=== PATIENT | female | born 1955 | race Caucasian/White ===

== ENCOUNTER → 2018-06-11 | Day surgery (SDC) | payer OTHER, MEDICAID ==
[2018-06-09 12:34] LABS: Urine Bacteria NONE SEEN /hpf (None Seen); Urine Blood Negative /uL (Negative); Urine Specific Gravity 1.012 (1.001-1.035); Urine WBC 3 /hpf (0 - 5)
[2018-06-09 12:37] LABS: INR 0.99 (0.9-1.15); Partial Thromboplastin Time 25.4 sec (23.78-33.04); Prothrombin Time 10.6 sec (9.27-12.13)
[2018-06-09 12:39] LABS: Basophils # (auto) 0.1 uL; Basophils % (auto) 0.8 % (0.0-2.0); Eosinophils # (auto) 0.2 uL; Eosinophils % (auto) 2.4 % (0.0-7.0); Hematocrit 40.3 % (36.0-46.0); Hemoglobin 13.5 g/dL (12.2-16.2); Lymphocytes # (auto) 2.1 uL; Lymphocytes % (auto) 27.8 % (10.0-50.0); Mean Corpuscular Hemoglobin 30.7 pg (28.0-32.0); Mean Corpuscular Hgb Conc. 33.4 g/dL (32.0-36.0); Monocytes # (auto) 0.5 uL; Monocytes % (auto) 6.3 % (0.0-12.0); Neutrophils # (auto) 4.8 uL; Neutrophils % (auto) 62.7 % (37.0-80.0); Platelet Count (auto) 213 10^3/uL (140-450); Red Blood Cells 4.39 10^6/uL (4.0-5.20); Red Cell Distribution Width 16.2 % (11.8-14.3); White Blood Cell 7.7 10^3/uL (4.4-10.8)
[2018-06-09 13:37] LABS: Calcium 9.8 mg/dL (8.5-10.1); Potassium 4.2 mmol/L (3.5-5.1)
[2018-06-09 13:47] LABS: Albumin 3.6 g/dL (3.4-5.0); BUN/Creatinine Ratio 16.1; Bilirubin, Total 0.3 mg/dL (0.2-1.0); Total Protein 7.9 g/dL (6.4-8.2)
[~2018-06-11] VITALS: Ht 167.6 cm; Wt 99.8 kg
[~2018-06-11] MED LIST: ALLO100T PO; ASPI81TA27 PO; BUPIVACAINE 0.75% INJ 10ML MPV SDV IJ ONE; DOCU-55 PO; ENAL2.5T PO; FENO48TA6 OR; FLUO-125 PO; FLUT50SP31; FURO40TA4 PO; GABA800T97 PO; GLIP-116 PO; INSLISPI SC; MIDAZOLAM HCL 1MG/1ML-2 ML VIAL ONE; ONDANSETRON HCL 4 MG/2 ML VIAL IV ONE; POLY33504 PO; PROPOFOL 10 MG/ML 20 ML IV ONE; SIMV-8 PO; SITA100T7 PO; VARE1TAB PO; ceFAZolin 1GM/50ML 50 ML IV ONE; ePHEDrine SULFATE 50 MG/ML AMP IV PRN; fentaNYL CITRATE 100 MCG/2 ML VL IV ONE; fentaNYL CITRATE 100 MCG/2 ML VL ONE; hydrALAZINE HCL 20 MG/ML VL IV PRN
== END | disposition home or self-care (01) ==
LOC: SUR 05:34
PROVIDERS: ATTEND Podiatrist Foot & Ankle Surgery
DX: L97.529 Non-pressure chronic ulcer of other part of left foot with unspecified severity (principal); E11.621 Type 2 diabetes mellitus with foot ulcer; M62.462 Contracture of muscle, left lower leg; E66.9 Obesity, unspecified; I10 Essential (primary) hypertension; E78.00 Pure hypercholesterolemia, unspecified; F17.210 Nicotine dependence, cigarettes, uncomplicated; Z88.1 Allergy status to other antibiotic agents; Z88.5 Allergy status to narcotic agent; Z68.35 Body mass index [BMI] 35.0-35.9, adult; Z90.49 Acquired absence of other specified parts of digestive tract; Z98.890 Other specified postprocedural states
CPT/HCPCS: 27685; 36415; 80053; 81001; 82962; 85025; 85610; 85730; J0690; J2250; J2704; J3010; J3490; Q4137

== ENCOUNTER 2019-03-25 10:30 | Day surgery (SDC) | payer OTHER, MEDICAID ==
[2019-03-23 11:00] LABS: Basophils # (auto) 0.1 uL; Eosinophils # (auto) 0.3 uL; Eosinophils % (auto) 3.6 % (0.0-7.0); Hemoglobin 13.6 g/dL (12.2-16.2); Lymphocytes # (auto) 1.7 uL; Lymphocytes % (auto) 24.3 % (10.0-50.0); Mean Corpuscular Hemoglobin 29.7 pg (28.0-32.0); Mean Corpuscular Hgb Conc. 33.2 g/dL (32.0-36.0); Mean Corpuscular Volume 89.5 fL (80.0-100.0); Monocytes # (auto) 0.5 uL; Monocytes % (auto) 7.2 % (0.0-12.0); Neutrophils # (auto) 4.5 uL; Neutrophils % (auto) 63.9 % (37.0-80.0); Platelet Count (auto) 232 10^3/uL (140-450); Red Blood Cells 4.58 10^6/uL (4.0-5.20); Red Cell Distribution Width 20.6 % (11.8-14.3); White Blood Cell 7.1 10^3/uL (4.4-10.8)
[2019-03-23 11:06] LABS: Urine Bacteria NONE SEEN /hpf (None Seen); Urine Blood Negative /uL (Negative); Urine Specific Gravity 1.008 (1.001-1.035); Urine WBC 1 /hpf (0 - 5)
[2019-03-23 11:12] LABS: INR 1.03 (0.9-1.15); Partial Thromboplastin Time 27.3 sec (23.64-32.05)
[2019-03-23 11:16] LABS: Albumin 3.8 g/dL (3.4-5.0); BUN/Creatinine Ratio 18.5; Calcium 10.6 mg/dL (8.5-10.1); Potassium 4.4 mmol/L (3.5-5.1)
[2019-03-23 11:18] LABS: Bilirubin, Total 0.4 mg/dL (0.2-1.0); Total Protein 8.5 g/dL (6.4-8.2)
[~2019-03-25] VITALS: Ht 167.6 cm; Wt 95.3 kg
[~2019-03-25 10:30] MED LIST changes: +AMIO200T33 PO; +APIX2.5T OR; -ASPI81TA27 PO; -BUPIVACAINE 0.75% INJ 10ML MPV SDV IJ ONE; +CHOL100029 PO; +CYAN1TAB14 PO; -DOCU-55 PO; -ENAL2.5T PO; +FENO1TAB OR; -FENO48TA6 OR; -FLUT50SP31; -GLIP-116 PO; +GLIP10TA9 PO; -MIDAZOLAM HCL 1MG/1ML-2 ML VIAL ONE; +NORT-22 PO; -ONDANSETRON HCL 4 MG/2 ML VIAL IV ONE; -POLY33504 PO; -PROPOFOL 10 MG/ML 20 ML IV ONE; -VARE1TAB PO; -ceFAZolin 1GM/50ML 50 ML IV ONE; -ePHEDrine SULFATE 50 MG/ML AMP IV PRN; -fentaNYL CITRATE 100 MCG/2 ML VL IV ONE; -fentaNYL CITRATE 100 MCG/2 ML VL ONE; -hydrALAZINE HCL 20 MG/ML VL IV PRN
[2019-03-25] MEDS ORDERED: ceFAZolin 1GM/50ML 50 ML IV ONE (11:47)
[2019-03-25] MEDS ORDERED: ceFAZolin 1GM VL ONE (14:03)
[2019-03-25] MEDS ORDERED: CLINDAMYCIN 600MG IV 50 ML IV ONE (14:06)
[2019-03-25] MEDS ORDERED: MIDAZOLAM HCL 1MG/1ML-2 ML VIAL ONE (14:07)
[2019-03-25] MEDS ORDERED: fentaNYL CITRATE 100 MCG/2 ML VL ONE (14:07)
[2019-03-25] MEDS ORDERED: PROPOFOL 10 MG/ML 20 ML IV ONE (14:07)
[2019-03-25 15:15] VITALS: BP 110/61
== END 2019-03-25 15:40 | disposition home or self-care (01) ==
LOC: SUR 10:30
PROVIDERS: ATTEND Podiatrist Foot & Ankle Surgery
DX: M86.8X7 Other osteomyelitis, ankle and foot (principal); L89.893 Pressure ulcer of other site, stage 3; E11.621 Type 2 diabetes mellitus with foot ulcer; E11.22 Type 2 diabetes mellitus with diabetic chronic kidney disease; I13.0 Hypertensive heart and chronic kidney disease with heart failure and stage 1 through stage 4 chronic kidney disease, or unspecified chronic kidney disease; I50.20 Unspecified systolic (congestive) heart failure; N18.3 Chronic kidney disease, stage 3 (moderate); E78.5 Hyperlipidemia, unspecified; E66.9 Obesity, unspecified; Q21.1 Atrial septal defect; I48.91 Unspecified atrial fibrillation; Z79.899 Other long term (current) drug therapy; Z90.49 Acquired absence of other specified parts of digestive tract; Z88.1 Allergy status to other antibiotic agents; Z88.5 Allergy status to narcotic agent; Z88.8 Allergy status to other drugs, medicaments and biological substances; Z79.84 Long term (current) use of oral hypoglycemic drugs; Z79.4 Long term (current) use of insulin; Z79.01 Long term (current) use of anticoagulants; Z87.59 Personal history of other complications of pregnancy, childbirth and the puerperium; Z87.891 Personal history of nicotine dependence; Z86.19 Personal history of other infectious and parasitic diseases; Z68.33 Body mass index [BMI] 33.0-33.9, adult
CPT/HCPCS: 11044; 36415; 80053; 81001; 82962; 85025; 85610; 85730; 88304; 88311; C1781; C1887; J0690; J2250; J2704; J3010; J3490; J7030

== ENCOUNTER 2019-03-29 15:33 | Inpatient (IN) | payer OTHER, MEDICAID ==
[~2019-03-29] VITALS: Ht 167.6 cm; Wt 109.1 kg
[2019-03-29 16:16] LABS: Basophils # (auto) 0.1 uL; Basophils % (auto) 1.2 % (0.0-2.0); Eosinophils # (auto) 0.4 uL; Eosinophils % (auto) 4.1 % (0.0-7.0); Hematocrit 35.6 % (36.0-46.0); Lymphocytes # (auto) 1.6 uL; Mean Corpuscular Hemoglobin 30.2 pg (28.0-32.0); Mean Corpuscular Hgb Conc. 33.9 g/dL (32.0-36.0); Mean Corpuscular Volume 89.2 fL (80.0-100.0); Monocytes # (auto) 0.7 uL; Monocytes % (auto) 7.4 % (0.0-12.0); Neutrophils # (auto) 7.2 uL; Neutrophils % (auto) 71.3 % (37.0-80.0); Platelet Count (auto) 243 10^3/uL (140-450); Red Blood Cells 3.99 10^6/uL (4.0-5.20); Red Cell Distribution Width 19.5 % (11.8-14.3); White Blood Cell 10.1 10^3/uL (4.4-10.8)
[2019-03-29 16:52] LABS: Albumin 3.4 g/dL (3.4-5.0); Potassium 3.4 mmol/L (3.5-5.1)
[2019-03-29 16:56] LABS: BUN/Creatinine Ratio 15.7; Bilirubin, Total 0.6 mg/dL (0.2-1.0); Total Protein 8.8 g/dL (6.4-8.2)
[2019-03-29] MEDS ORDERED: MORPHINE SULFATE 4 MG/ML SYR/VIAL IV ONE (22:15)
[2019-03-29] MEDS ORDERED: ONDANSETRON HCL 4 MG/2 ML VIAL IV ONE (22:15)
[2019-03-29] MEDS ORDERED: VANCOMYCIN 1GM/250ML 250 ML IV ONE (22:15)
[2019-03-29] MEDS ORDERED: PIPERACILLIN-TAZOB 3.375GM 100 ML IV ONE (22:15)
[2019-03-29] MEDS ORDERED: DOCUSATE SOD 100 MG CAP PO PRN (23:30)
[2019-03-29] MEDS ORDERED: ACETAMINOPHEN 500 MG TAB PO PRN (23:30)
[2019-03-29] MEDS ORDERED: VANCOMYCIN PER PHARMACY 0 MG IV SCH (23:30)
[2019-03-29] MEDS ORDERED: DEXTROSE (50%) 50ML SYRG IV PRN (23:30)
[2019-03-30] MEDS: ONDANSETRON HCL 4 MG/2 ML VIAL IV PRN ×3 (03:37→15:23)
[2019-03-30] MEDS: MORPHINE SULF INJ 2 MG/ML SYRINGE 1ML IV PRN ×3 (03:37→15:22)
[2019-03-30 04:08] LABS: Basophils # (auto) 0.1 uL; Basophils % (auto) 0.8 % (0.0-2.0); Eosinophils # (auto) 0.4 uL; Eosinophils % (auto) 5.4 % (0.0-7.0); Lymphocytes # (auto) 1.7 uL; Lymphocytes % (auto) 22.4 % (10.0-50.0); Mean Corpuscular Hemoglobin 30.6 pg (28.0-32.0); Mean Corpuscular Hgb Conc. 34.5 g/dL (32.0-36.0); Mean Corpuscular Volume 88.8 fL (80.0-100.0); Monocytes # (auto) 0.7 uL; Monocytes % (auto) 9.1 % (0.0-12.0); Neutrophils # (auto) 4.7 uL; Neutrophils % (auto) 62.3 % (37.0-80.0); Nucleated Red Blood Cells % 0.1 %; Platelet Count (auto) 217 10^3/uL (140-450); Red Blood Cells 3.61 10^6/uL (4.0-5.20); Red Cell Distribution Width 19.3 % (11.8-14.3); White Blood Cell 7.6 10^3/uL (4.4-10.8)
[2019-03-30 04:42] LABS: BUN/Creatinine Ratio 15.1; Calcium 9.5 mg/dL (8.5-10.1); Potassium 3.5 mmol/L (3.5-5.1)
[2019-03-30] MEDS: PIPERACILLIN-TAZOB 2.25GM 50 ML IV SCH ×2 (06:06→11:46)
[2019-03-30] MEDS: GABAPENTIN 400 MG CAP PO SCH ×3 (06:06→22:06)
[2019-03-30] MEDS: InsuLIN REG 1unit/0.01ml Soln (100units/ml) SC SCH ×4 (07:00→22:00)
[2019-03-30] MEDS: ACCU-CHEK COMFORT CURVE STRIP VI SCH ×4 (07:03→22:10)
[2019-03-30 09:57] LABS: Urine Bacteria FEW /hpf (None Seen); Urine Blood Negative /uL (Negative); Urine Specific Gravity 1.019 (1.001-1.035); Urine WBC 8 /hpf (0 - 5)
[2019-03-30] MEDS: AMIODARONE HCL 200 MG TAB PO SCH (10:00)
[2019-03-30] MEDS: FLUoxetine HCL 20 MG CAP PO SCH (10:10)
--- NOTE | 2019-03-30 11:20 | NUR ---
WOUND CARE NOTE: IN TO SEE PATIENT AT THIS TIME PER WOUND CARE CONSULT REQUEST. PATIENT WAS RECENTLY ADMITTED TO [facility] WITH DIAGNOSIS OF RIGHT FOOT WOUND/CELLULITIS. CURRENT SUHA SCORE IS 16. PATIENT IS IN ER BED 17, AWAITING PLACEMENT ON TELE FLOOR UPON AVAILABILITY. PODIATRY CONSULT ORDERED AND IS PENDING. WOUND PHOTOS TAKEN AT THIS TIME PER PROTOCOL FOR REFERENCE. PATIENT STATES THAT SHE UNDERWENT AMPUTATION/DEBRIDEMENT OF RIGHT # [address] WIN ON 03/25/19. PATIENT NOTED ERYTHEMA TO RIGHT ANTERIOR STONE, AND WOUND/INCISION STARTED TO BLEED, AND TURN PURPLE. PATIENT PRESENTED TO ER. PATIENT IS NOTED TO HAVE A DFU THAT IS CALLOUSED (4X4 CM) TO RIGHT PLANTAR FOREFOOT. THERE IS A 0.5 X 0.5 X 1.5 CM OPEN DFU AT [facility]. WOUND BED IS PINK, PERIWOUND IS CALLOUSED, YELLOW. RIGHT MEDIAL FOOT HAS SURGICAL INCISION THAT IS SUTURED CLOSED. THERE IS A HEMATOMA TO THE RIGHT DORSAL ASPECT OF WOUND. THIS AREA IS VERY BOGGY TO THE TOUCH. NO ACTIVE BLEEDING NOTE. LATERAL SIDE OF PERIWOUND IS BRIGHT RED WITH EDEMA. CLEANSED WOUNDS WITH WOUND CLEANSER, PAT DRY WITH STERILE GAUZE. PACKED PLANTAR FOOT DFU WITH 1/4 IODOFORM. APPLIED XEROFORM GAUZE STRIP ALONG INCISION LINE. COVERED ALL WITH STERILE 4X4 SPONGES. COVERED ALL WITH ABD PAD. WRAPPED FOOT WITH KERLIX, SECURED WITH TAPE. ADVISED BEDSIDE NURSE TO ELEVATE RIGHT FOOT UP ONTO PILLOWS FOR EDEMA CONTROL. RECOMMEND: DAILY DRESSING CHANGE TO WOUNDS ON RIGHT FOOT, DIETARY CONSULT, ELEVATION RIGHT FOOT, SKIN/WOUND CARE PLAN, CONTINUED MONITORING BY WOUND CARE TEAM. Addendum: 03/30/19 at 1504 by Flavia Weiss RN Amended: Links added.
[2019-03-30] MEDS ORDERED: MEROPENEM 1GM IVPB 100 ML IV ONE (13:15)
[2019-03-30 14:07] LABS: INR 1.11 (0.9-1.15); Partial Thromboplastin Time 34.1 sec (23.64-32.05)
[2019-03-30 14:11] LABS: CRP High Sensitivity 16.5 mg/dL (< 0.3)
[2019-03-30 16:39] VITALS: BP 92/49
--- NOTE | 2019-03-30 18:30 | NUR ---
ARRIVAL TO FLOOR PATIENT ARRIVED TO THE FLOOR AROUND 1600 VIA HOSPITAL BED. SHE HAS A CANE WITH HER FROM HOME. SHE IS ALERT AND ORIENTED. ORIENTED PATIENT TO THE ROOM AND CALL LIGHT. THIS NURSE WAS NOTIFIED BY ED NURSE THAT [facility]OC HAD SEEN HER AND HAD TAKEN PICTURES OF THE WOUND AND DONE THE DRESSING CHANGE. DRESSING IS CLEAN, DRY, AND INTACT. NO C/O PAIN AT THIS TIME.
[2019-03-30 22:00] VITALS: BP 99/53
[2019-03-30] MEDS: MEROPENEM 1GM IVPB 100 ML IV SCH (22:05)
[2019-03-30] MEDS: ATORVASTATIN 20 MG TAB PO SCH (22:06)
[2019-03-30] MEDS: HYDROcodone-ACET 5/325MG TAB PO PRN (22:06)
--- NOTE | 2019-03-30 23:25 | NUR ---
IV insertion IV access obtained, via clean sterile technique by inserting 20 gauge catheter at Right FA after 1 attempt. IV secured properly. No trauma to site. Patient tolerated well.
--- NOTE | 2019-03-30 23:30 | NUR ---
IV removal IV DC'd Left FA with clean sterile technique, catheter fully intact. Pressure dressing applied to site. Patient tolerated well. NOTE: IV site tenderness/ swelling.
[2019-03-30] MEDS: VANCOMYCIN 1GM/250ML 250 ML IV SCH (23:39)
--- NOTE | 2019-03-30 23:40 | NUR ---
IV insertion IV access obtained, via clean sterile technique by inserting 22 gauge catheter at Left upper FA after 1 attempt. IV secured properly. No trauma to site. Patient tolerated well.
--- NOTE | 2019-03-31 02:51 | NUR ---
PATIENT SLEEPING WITH NO S/S OF DISTRESS NOTED. BED ALARM ON, CALL LIGHT WITHIN REACH.
[2019-03-31 05:02] VITALS: BP 100/53
[2019-03-31 05:28] LABS: Basophils # (auto) 0.1 uL; Basophils % (auto) 1.2 % (0.0-2.0); Eosinophils # (auto) 0.3 uL; Eosinophils % (auto) 6.3 % (0.0-7.0); Hematocrit 31.4 % (36.0-46.0); Hemoglobin 10.5 g/dL (12.2-16.2); Lymphocytes # (auto) 0.8 uL; Lymphocytes % (auto) 16.3 % (10.0-50.0); Mean Corpuscular Hemoglobin 30.3 pg (28.0-32.0); Mean Corpuscular Hgb Conc. 33.5 g/dL (32.0-36.0); Mean Corpuscular Volume 90.3 fL (80.0-100.0); Monocytes # (auto) 0.5 uL; Monocytes % (auto) 9.2 % (0.0-12.0); Neutrophils # (auto) 3.4 uL; Platelet Count (auto) 199 10^3/uL (140-450); Red Blood Cells 3.48 10^6/uL (4.0-5.20); Red Cell Distribution Width 19.3 % (11.8-14.3); White Blood Cell 5.1 10^3/uL (4.4-10.8)
--- NOTE | 2019-03-31 05:32 | NUR ---
WHEN ASKING PATIENT IF SHE WOULD LIKE ANY MEDICATION FOR PAIN PATIENT STATES "ILL BE FINE". ASKED PATIENT AGAIN IF SHE NEEDS ANY MEDICATION FOR PAIN AND SHE REPEATED "ILL BE FINE".
--- NOTE | 2019-03-31 05:35 | NUR ---
AMBULATION PATIENT AMBULATES TO BATHROOM USING QUAD CANE WITH STANDBY ASSIST. PATIENT UNSTEADY WHEN FIRST STANDING UP. ASKED PATIENT IF SHE WOULD LIKE TO USE A BEDSIDE COMMODE BUT SHE INSISTED ON AMBULATING. PATIENT AMBULATED TO BATHROOM USING CANE WITH STANDBY ASSIST. PARTIAL LINEN CHANGE PROVIDED FOR PATIENT. PATIENT RETURNS TO BED WITHOUT INCIDENT.
[2019-03-31] MEDS: GABAPENTIN 400 MG CAP PO SCH ×3 (05:46→21:32)
[2019-03-31] MEDS: ACCU-CHEK COMFORT CURVE STRIP VI SCH ×4 (05:49→21:39)
[2019-03-31] MEDS: InsuLIN REG 1unit/0.01ml Soln (100units/ml) SC SCH ×4 (05:49→21:44)
[2019-03-31 05:50] LABS: Albumin 2.6 g/dL (3.4-5.0); Calcium 9.5 mg/dL (8.5-10.1); Magnesium 2.4 mg/dL (1.6-2.6)
--- NOTE | 2019-03-31 05:51 | NUR ---
AMBULATING HALLWAYS PATIENT WISHES TO AMBULATE IN THE HALLWAY. PATIENT WITNESSED AMBULATING HALLWAYS WITH BOOT ON RIGHT FOOT AND USING QUAD CANE WITH STEADY GAIT.
[2019-03-31 05:53] LABS: BUN/Creatinine Ratio 17.1
--- NOTE | 2019-03-31 06:00 | NUR ---
PATIENT NOT IN ROOM AND CAN NOT BE SEEN WALKING IN THE HALLWAYS . PATIENT EQUIPMENT TECH SHOWING COMMUNICATION LOST.
--- NOTE | 2019-03-31 06:05 | NUR ---
SECURITY MOON SPOKE TO ALTAF AT [facility] TO PROVIDE DESCRIPTION OF PATIENT. PATIENT WAS SEEN WALKING DOWNSTAIRS IN HALLWAYS, MAIN LOBBY AND URGENT CARE AREA. INFORMED SECURITY TO ESCORT PATIENT BACK TO ROOM BECAUSE SHE IS NOT TO BE OFF THE FLOOR WITHOUT THE REQUIRED AMA FLOOR, HE VERBALIZED UNDERSTANDING.
[2019-03-31 06:06] LABS: Bilirubin, Total 0.4 mg/dL (0.2-1.0)
--- NOTE | 2019-03-31 06:15 | NUR ---
PATIENT RETURNED TO ROOM WITHOUT INCIDENT. PATIENT DENIES SMOKING. PATIENT STATES SHE JUST WANTED "FRESH AIR".
--- NOTE | 2019-03-31 06:25 | NUR ---
PEREZ SEARS states they want to leave the floor Against Medical Advice(AMA) to go outside, patient denies smoking but has strong smell of smoke when she returns to her room. Patient encouraged to stay on floor and not smoke. Patient advised of the risks and benefits of leaving AMA. Patient verbalized understanding and signed required AMA form. Instructed patient to notify nursing staff before she leaves the floor, she verbalized understanding.
--- NOTE | 2019-03-31 08:00 | NUR ---
Opening Shift Note Assumed care of patient, awake and alert. No S/S of distress/SOB or pain. Instructed on POC and to call for assist PRN, will continue to monitor for changes Q1hr and PRN.
[2019-03-31 09:00] VITALS: BP 87/46
[2019-03-31] MEDS: ENOXAPARIN SOD 40 MG/0.4 ML SYRINGE SC SCH (09:36)
[2019-03-31] MEDS: AMIODARONE HCL 200 MG TAB PO SCH (09:36)
[2019-03-31] MEDS: MEROPENEM 1GM IVPB 100 ML IV SCH ×2 (09:36→21:32)
[2019-03-31] MEDS: FLUoxetine HCL 20 MG CAP PO SCH (09:36)
--- NOTE | 2019-03-31 12:20 | NUR ---
Nutrition Assessment/consult Notes please see attached link for complete assessment Est. Needs ABW [id number] kcal (20-23 kcal/kgBW), 80-88 gms pro (1.0-1.1 gms/kgBW r/t elev RFT wounds). Will continue to monitor pertinent labs and reassess nutrient need prn Addendum: 03/31/19 at [address] Amended: Links added.
[2019-03-31 12:30] VITALS: BP 107/51
[2019-03-31] MEDS: HYDROcodone-ACET 5/325MG TAB PO PRN ×3 (12:40→21:33)
--- NOTE | 2019-03-31 14:30 | NUR ---
PICC line placement Patient educated on need for PICC line placement primary RN and MD. All risks and benefits explained and all questions and concerns addressed prior to procedure. Noted past medical history and allergies with no contraindications. INR and Plt counts within acceptable range. 5 fr PICC line inserted via right basilic vein using [employer] US and Tip Location System. Sterile technique with maximum barrier precautions utilized. Blood return obtained from each of three lumens and each flushed easily with NS using proper technique. PICC secured with Stat-lock; biodisc and occlusive dressing applied. Stat portable chest x-ray obtained for PICC tip placement. *Baseline Arm Circumference 32 cm. *Internal Length 43 cm. *External Length 0 cm. *PICC lot #[id number]. Note: Placed easily, tolerated well. EBL 5mls.
[2019-03-31] MEDS ORDERED: LIDOCAINE 1% (LOCAL ANESTH.) PF 5ml SDV ID ONE (14:45)
--- NOTE | 2019-03-31 15:09 | NUR ---
OK to Use PICC Line X-ray completed. Primary RN notified.
--- NOTE | 2019-03-31 16:00 | NUR ---
DRSG CHANGE DRESSING CHANGE DONE TO RIGHT FOOT PER ORDERS. PATIENT WAS GIVEN PAIN MEDICATION PRIOR TO THE DRESSING CHANGE. PATIENT TOLERATED WELL. PATIENT REQUESTED TO GET UP INTO A WHEELCHAIR TO GET AROUND THE FLOOR. THIS NURSE ASSISTED HER INTO WHEELCHAIR.
--- NOTE | 2019-03-31 16:27 | NUR ---
Per SS consult received, patient has order to dc with SNF placement for IV ABX and wound care treatment. Referral packet faxed to the following facilities: [facility] and [facility]. Pending acceptance. Will follow up on 04.01.19. Addendum: 03/31/19 at 1630 by LAW LUBIN Amended: Links added.
[2019-03-31 17:27] VITALS: BP 121/55
[2019-03-31] MEDS: SODIUM CHLOR 0.9% PF (SALINE LOCK) 10ML VIAL/SYR IV SCH (20:47)
[2019-03-31] MEDS: ATORVASTATIN 20 MG TAB PO SCH (21:33)
[2019-03-31 22:00] VITALS: BP 102/53
[2019-03-31] MEDS: VANCOMYCIN 1GM/250ML 250 ML IV SCH (23:09)
[2019-04-01 05:00] VITALS: BP 100/43
[2019-04-01] MEDS: GABAPENTIN 400 MG CAP PO SCH ×3 (05:07→22:15)
[2019-04-01 05:56] LABS: Basophils # (auto) 0 uL; Basophils % (auto) 0.6 % (0.0-2.0); Eosinophils # (auto) 0.3 uL; Eosinophils % (auto) 4.9 % (0.0-7.0); Hemoglobin 11.1 g/dL (12.2-16.2); Lymphocytes # (auto) 2.2 uL; Lymphocytes % (auto) 33.9 % (10.0-50.0); Mean Corpuscular Hemoglobin 30.4 pg (28.0-32.0); Mean Corpuscular Hgb Conc. 33.5 g/dL (32.0-36.0); Mean Corpuscular Volume 90.8 fL (80.0-100.0); Monocytes # (auto) 0.6 uL; Neutrophils # (auto) 3.3 uL; Neutrophils % (auto) 51.6 % (37.0-80.0); Platelet Count (auto) 254 10^3/uL (140-450); Red Blood Cells 3.64 10^6/uL (4.0-5.20); Red Cell Distribution Width 19.3 % (11.8-14.3); White Blood Cell 6.4 10^3/uL (4.4-10.8)
[2019-04-01] MEDS: InsuLIN REG 1unit/0.01ml Soln (100units/ml) SC SCH ×4 (06:07→22:43)
[2019-04-01] MEDS: ACCU-CHEK COMFORT CURVE STRIP VI SCH ×4 (06:07→22:43)
[2019-04-01 06:29] LABS: Potassium 4.2 mmol/L (3.5-5.1)
[2019-04-01 06:42] LABS: Albumin 2.6 g/dL (3.4-5.0); BUN/Creatinine Ratio 19.5; Bilirubin, Total 0.4 mg/dL (0.2-1.0); CRP High Sensitivity 7.87 mg/dL (< 0.3); Calcium 9.7 mg/dL (8.5-10.1); Total Protein 7.4 g/dL (6.4-8.2)
[2019-04-01] MEDS: AMIODARONE HCL 200 MG TAB PO SCH (10:00)
[2019-04-01] MEDS: ENOXAPARIN SOD 40 MG/0.4 ML SYRINGE SC SCH (10:00)
[2019-04-01] MEDS: MEROPENEM 1GM IVPB 100 ML IV SCH ×2 (10:12→22:14)
[2019-04-01] MEDS: HYDROcodone-ACET 5/325MG TAB PO PRN ×2 (10:13→22:15)
[2019-04-01] MEDS: FLUoxetine HCL 20 MG CAP PO SCH (10:13)
[2019-04-01] MEDS: SODIUM CHLOR 0.9% PF (SALINE LOCK) 10ML VIAL/SYR IV SCH ×2 (10:15→22:14)
[2019-04-01] MEDS ORDERED: ONDANSETRON HCL 4 MG/2 ML VIAL ONE (11:24)
[2019-04-01] MEDS ORDERED: SODIUM CHLORIDE LOCK 10 ML ONE (11:24)
[2019-04-01] MEDS ORDERED: fentaNYL CITRATE 100 MCG/2 ML VL ONE (11:24)
[2019-04-01] MEDS ORDERED: PROPOFOL 10 MG/ML 20 ML IV ONE (11:24)
[2019-04-01] MEDS ORDERED: MIDAZOLAM HCL 1MG/1ML-2 ML VIAL ONE (11:25)
[2019-04-01] MEDS ORDERED: ROPIVACAINE 0.5% (5MG/ML) 20ML AMPULE IJ ONE (11:35)
[2019-04-01] MEDS ORDERED: ceFAZolin 1GM VL ONE (11:35)
[2019-04-01] MEDS ORDERED: METOCLOPRAMIDE HCL 5MG/ml INJ 2ml VIAL IV PRN (11:45)
[2019-04-01] MEDS ORDERED: HYDROmorphone HCL 2 MG/ML VL IV PRN (11:45)
[2019-04-01] MEDS ORDERED: ACCU-CHEK COMFORT CURVE STRIP VI ONE (11:45)
--- NOTE | 2019-04-01 12:00 | NUR ---
Patient in procedure Addendum: 04/01/19 at 1945 by MIGUEL SUBRAMANIAN RN RN Amended: Links added.
--- NOTE | 2019-04-01 13:38 | NUR ---
Patient returned from procedure, patient is alert and oriented. Posterior tibialis pulses intact. Dressing to the right foot is dry and intact.
--- NOTE | 2019-04-01 16:55 | NUR ---
Placed a follow up call for placement, and per Marielle at [facility], they are able to accept this patient. She was requesting authorization. I advised that we were in the process of obtaining it. Advised Keyonna that an auth was needed for placement. Addendum: 04/01/19 at 1659 by LAW LUBIN SS Amended: Links added.
[2019-04-01 17:11] VITALS: BP 108/52
--- NOTE | 2019-04-01 17:15 | NUR ---
WOUND CARE NOTE: Wound care in to see patient per Dr. Ojeda's order to apply wound vac to patient's right foot surgical wound. Patient is resting in bed in Rm 288B. She's awake, alert and oriented. Patient's education provided regarding NPWT and she states that she's aware of it and had a wound vac experience before. Patient offered pain medication prior dressing change but refuse and states if she can not tolerate it, nurse at bedside can get it for her. Patient undergone Incision, Drainage and Debridement of Infected R foot wound earlier this morning by Dr. Ojeda. Removed patient's R foot wound dressing with minimal serosanguineous drainage. R foot wound measuring 7x4x3.5cm with red wound bed and exposed bone. Candie wound is pink with mild redness and edema, no odor noted. Cleansed wound with wound cleanser, patted dry with sterile gauze, applied no-sting barrier and transparent drape periwound to protect with . Applied one small white foam to protect exposed bone, fill wound bed with one piece black granu foam dressing, covered with transparent drape. Tract pad applied to lianna and connected the tubings. Run wound vac at 125mm Hg continuous suction with good seal and no leak detected. Patient tolerated well. [place]avern portable wound back paper works filled up and placed in patient's chart for MD's signature. Wound care team to follow and change dressing Q3days while inhouse per MD order. Patient's 4x4cm calloused DFU to R plantar foot remain intact. Photograph of wounds are taken for reference Patient's daughter in law at bedside. Addendum: 04/01/19 at 1909 by Karla Thompson RN Amended: Links added.
[2019-04-01 21:30] VITALS: BP 123/53
[2019-04-01] MEDS: SODIUM CHLORIDE 0.9% 1,000 ML IV SCH (21:39)
[2019-04-01] MEDS: ATORVASTATIN 20 MG TAB PO SCH (22:15)
[2019-04-01] MEDS: VANCOMYCIN 1GM/250ML 250 ML IV SCH (23:01)
[2019-04-02 05:39] VITALS: BP 104/49
[2019-04-02] MEDS: GABAPENTIN 400 MG CAP PO SCH ×3 (05:45→22:09)
[2019-04-02 06:23] LABS: Basophils # (auto) 0 uL; Basophils % (auto) 0.6 % (0.0-2.0); Eosinophils # (auto) 0.2 uL; Eosinophils % (auto) 3.5 % (0.0-7.0); Hematocrit 33.8 % (36.0-46.0); Hemoglobin 11.1 g/dL (12.2-16.2); Lymphocytes # (auto) 1.8 uL; Lymphocytes % (auto) 27.7 % (10.0-50.0); Mean Corpuscular Hgb Conc. 32.9 g/dL (32.0-36.0); Mean Corpuscular Volume 91.2 fL (80.0-100.0); Monocytes # (auto) 0.5 uL; Monocytes % (auto) 7.4 % (0.0-12.0); Neutrophils % (auto) 60.8 % (37.0-80.0); Nucleated Red Blood Cells % 0.1 %; Platelet Count (auto) 248 10^3/uL (140-450); Red Cell Distribution Width 19.6 % (11.8-14.3); White Blood Cell 6.6 10^3/uL (4.4-10.8)
[2019-04-02] MEDS: InsuLIN REG 1unit/0.01ml Soln (100units/ml) SC SCH ×4 (06:36→22:09)
[2019-04-02] MEDS: ACCU-CHEK COMFORT CURVE STRIP VI SCH ×4 (06:37→22:11)
[2019-04-02 07:00] LABS: BUN/Creatinine Ratio 17.1; Calcium 9.3 mg/dL (8.5-10.1); Potassium 4.3 mmol/L (3.5-5.1)
--- NOTE | 2019-04-02 07:25 | NUR ---
Opening Shift Note Assumed care of patient, awake and alert X 4, sitting up in bed. No S/S of distress/SOB, no pain noted or reported at this time. Respirations are even and unlabored on 2L NC. Updated pt on POC and instructed to call for assistance as needed, pt. verbalized understanding. Bed locked in lowest position, side rails up x2, call light within reach. Wound vac on 125 mm hg low continuous suction to right foot. Will continue to monitor for changes Q1hr and PRN.
[2019-04-02 09:00] VITALS: BP 101/61
[2019-04-02] MEDS: SODIUM CHLORIDE 0.9% 1,000 ML IV SCH ×2 (09:50→23:17)
[2019-04-02] MEDS: FLUoxetine HCL 20 MG CAP PO SCH (10:58)
[2019-04-02] MEDS: ENOXAPARIN SOD 40 MG/0.4 ML SYRINGE SC SCH (10:59)
[2019-04-02] MEDS: MEROPENEM 1GM IVPB 100 ML IV SCH ×2 (11:00→22:10)
[2019-04-02] MEDS: AMIODARONE HCL 200 MG TAB PO SCH (11:01)
[2019-04-02] MEDS: SODIUM CHLOR 0.9% PF (SALINE LOCK) 10ML VIAL/SYR IV SCH ×2 (11:03→22:09)
[2019-04-02 12:56] VITALS: BP 118/63
[2019-04-02] MEDS: VANCOMYCIN 1,500 MG in D5W 5% 250 ML IV SCH (13:00)
--- NOTE | 2019-04-02 14:22 | NUR ---
Spoke with Dr. Ojeda Regarding orders for discharge to SNF. Lynette is okay with discharge to SNF on IV antibiotics and continuous wound vac suctioning.
[2019-04-02] MEDS: MORPHINE SULF INJ 2 MG/ML SYRINGE 1ML IV PRN ×2 (15:24→23:32)
--- NOTE | 2019-04-02 15:24 | NUR ---
IV removal IV DC'd with clean sterile technique, catheter fully intact. Pressure dressing applied to site. Patient tolerated well. NOTE: [Pt. stated IV was very painful and upon assessment it was slightly swollen and red.]
--- NOTE | 2019-04-02 16:44 | NUR ---
I faxed wound vac order to [facility] requesting authorization for [employer].
[2019-04-02 17:00] VITALS: BP 125/68
--- NOTE | 2019-04-02 17:30 | NUR ---
WOUND CARE NOTE: Daily wound vac check. Patient with wound vac to right foot. Dressing is C/D/I and suction at 125mm Hg continuous suction. Discussed with bedside RN, Opal. Plan is for patient to discharge to SNF once home vac is arranged and delivered. Wound care team to continue to follow. Next dressing change due 04/04/19.
--- NOTE | 2019-04-02 19:22 | NUR ---
SPOKE WITH DR. CROWE REGARDING PT. NOT BEING DISCHARGED TO [facility]. STILL WAITING ON RESPONSE FROM CASE MANAGEMENT REGARDING [facility] PLACEMENT AND WOUND VAC. DR. CROWE STATED TO CONTACT [facility] TO SEE IF THEY HAVE A WOUND VAC SO THE PT. COULD BE TRANSFERRED TONIGHT. WILL ENDORSE TO DECK STEWARD RN
--- NOTE | 2019-04-02 19:25 | NUR ---
SPOKE WITH DR. AMRITA CROWE STATED TO JUST TRANSFER HER AND [facility]EE [facility]WELL WILL HAVE A WOUND VAC AVAILABLE FOR US. WILL ENDORSE TO SLIDE FORMING MACHINE TENDER RN
--- NOTE | 2019-04-02 19:43 | NUR ---
SPOKE TO DR. CROWE AND HE STATED THAT HE WILL TAKE CARE OF THE TRANSFER TOMORROW AND THAT PATIENT WILL STAY TONIGHT AND HOLD D/C.
[2019-04-02 22:00] VITALS: BP 112/53
[2019-04-02] MEDS: ATORVASTATIN 20 MG TAB PO SCH (22:09)
[2019-04-03 05:00] VITALS: BP 120/58
[2019-04-03] MEDS: ACCU-CHEK COMFORT CURVE STRIP VI SCH ×4 (06:15→21:38)
[2019-04-03 06:30] LABS: Albumin 2.7 g/dL (3.4-5.0); BUN/Creatinine Ratio 14.8; Calcium 9.3 mg/dL (8.5-10.1)
[2019-04-03 06:33] LABS: Bilirubin, Total 0.3 mg/dL (0.2-1.0); Total Protein 7.1 g/dL (6.4-8.2)
[2019-04-03] MEDS: GABAPENTIN 400 MG CAP PO SCH ×3 (06:48→21:37)
[2019-04-03] MEDS: InsuLIN REG 1unit/0.01ml Soln (100units/ml) SC SCH ×4 (06:49→21:38)
--- NOTE | 2019-04-03 07:25 | NUR ---
Opening Shift Note Assumed care of patient, awake and alert X 4, sitting up in bed watching television. No S/S of distress/SOB, no pain noted or reported at this time. Respirations are even and unlabored on RA. Updated pt on POC and instructed to call for assistance as needed, pt. verbalized understanding. Bed locked in lowest position, side rails up x2, call light within reach. Wound vac on 125 mm hg low continuous suction to right foot. Will continue to monitor for changes Q1hr and PRN.
[2019-04-03 08:00] VITALS: BP 129/65
--- NOTE | 2019-04-03 08:36 | NUR ---
I faxed SNF order to [facility] requesting authorization for [facility].
--- NOTE | 2019-04-03 09:06 | NUR ---
I called [facility] discharge nurse Preston [phone] and left message asking for authorization for [place] as well as wound vac-awaiting return call. I also called Ria at [facility] [phone] and left message asking for authorization for [facility] as well as [employer] for wound vac-awaiting return call.
[2019-04-03] MEDS: AMIODARONE HCL 200 MG TAB PO SCH (10:00)
--- NOTE | 2019-04-03 10:12 | NUR ---
Late entry note for 04.02.19 Received authorization from [facility] for SNF placement with [facility] ([id number]) and for transportation ([id number]) per Preston. Placed a follow up call to Marielle at [facility] and was advised they should have a bed tomorrow. Addendum: 04/03/19 at 1016 by LAW LUBIN SS Amended: Links added.
[2019-04-03] MEDS: MEROPENEM 1GM IVPB 100 ML IV SCH ×2 (10:34→21:37)
[2019-04-03] MEDS: SODIUM CHLOR 0.9% PF (SALINE LOCK) 10ML VIAL/SYR IV SCH ×2 (10:34→21:37)
[2019-04-03] MEDS: ENOXAPARIN SOD 40 MG/0.4 ML SYRINGE SC SCH (10:35)
[2019-04-03] MEDS: FLUoxetine HCL 20 MG CAP PO SCH (10:35)
--- NOTE | 2019-04-03 11:15 | NUR ---
WOUND CARE NOTE: IN TO ASSESS FUNCTION OF WOUND VAC AT THIS TIME. VAC IS RUNNING AT 125 MM/HG CONTINUOUS. GOOD SUCTION, NO LEAKS DETECTED TO RIGHT FOOT WOUND. WOUND CARE TEAM WILL CONTINUE TO MONITOR.
[2019-04-03 12:00] VITALS: BP 126/65
--- NOTE | 2019-04-03 12:12 | NUR ---
I received a call from Preston at [facility] letting me know that the authorization number for [facility] for wound vac is [id number].
[2019-04-03] MEDS: SODIUM CHLORIDE 0.9% 1,000 ML IV SCH (12:30)
[2019-04-03] MEDS: MORPHINE SULF INJ 2 MG/ML SYRINGE 1ML IV PRN ×2 (12:36→21:39)
[2019-04-03] MEDS: VANCOMYCIN 1,500 MG in D5W 5% 250 ML IV SCH (13:00)
[2019-04-03 17:00] VITALS: BP 137/66
--- NOTE | 2019-04-03 17:35 | NUR ---
Patient is going to [facility] bed 37A, accepting MD is Kenneth. [facility] on will call to transport after wound vac has been delivered to pt. room between now and 10pm. Primary RN to call [facility] when pt. is ready for transport this evening, # .
--- NOTE | 2019-04-03 17:45 | NUR ---
Patient received auth for SNF placement ([id number]) and for transportation ([id number]). Accepted at [facility] per Marielle and will go to room 37 bed A. Transportation set up with [facility] (on will call). Patient is awaiting placement of wound vac prior to discharge. Spoke with nurse Hitesh, and advised of discharge plan, she verbalized understanding, provided the number to [facility]. She advised she received a phone call from a rep stating he was on his way with the wound vac and hoped to be arriving within two hours depending on traffic. Per [facility] rep-Vern, he said Polly would deliver the wound vac and [facility] would deliver supplies directly to [facility]. Addendum: 04/03/19 at 1752 by LAW PATEL Amended: Links added.
[2019-04-03 17:54] VITALS: BP 137/66
--- NOTE | 2019-04-03 19:05 | NUR ---
Opening Shift Note Assumed care of patient, awake and alert. No S/S of distress/SOB or pain. Instructed on POC and to call for assist PRN, will continue to monitor for changes Q1hr and PRN. Side rails up x2. Bed locked in lowest position. Call light within reach. Patient attached to wound vac running with no leak.
--- NOTE | 2019-04-03 19:48 | NUR ---
Wound vac for patient to take home delivered. Will replace hospital wound vac to this wound vac prior to transfer.
[2019-04-03 20:00] VITALS: BP 133/58
--- NOTE | 2019-04-03 20:15 | NUR ---
Called [facility] for transfer [facility] unable to transfer patient due to insurance not able to cover transfer. Will attempt to set up transfer with other private vehicles.
[2019-04-03] MEDS: ATORVASTATIN 20 MG TAB PO SCH (21:39)
--- NOTE | 2019-04-03 21:50 | NUR ---
Unable to set up transfer due to other private company not accepting patients insurance. Will call hospitalist to hold transport and notify charge nurse.
[2019-04-04] MEDS: SODIUM CHLORIDE 0.9% 1,000 ML IV SCH (03:49)
[2019-04-04 05:00] VITALS: BP 105/54
[2019-04-04] MEDS: MORPHINE SULF INJ 2 MG/ML SYRINGE 1ML IV PRN (05:31)
--- NOTE | 2019-04-04 06:13 | NUR ---
Downgrade to med surg Received order from Dr. Cruz to downgrade patient to med surg.
[2019-04-04] MEDS: ACCU-CHEK COMFORT CURVE STRIP VI SCH ×2 (06:38→11:57)
[2019-04-04] MEDS: GABAPENTIN 400 MG CAP PO SCH ×2 (06:38→12:57)
[2019-04-04] MEDS: InsuLIN REG 1unit/0.01ml Soln (100units/ml) SC SCH ×2 (06:38→11:30)
[2019-04-04 07:07] LABS: BUN/Creatinine Ratio 10.6; Calcium 9.7 mg/dL (8.5-10.1); Potassium 4.3 mmol/L (3.5-5.1)
[2019-04-04 07:10] LABS: Bilirubin, Total 0.3 mg/dL (0.2-1.0); Total Protein 7.7 g/dL (6.4-8.2)
--- NOTE | 2019-04-04 07:15 | NUR ---
Endorsed care to day shift RN. Patient in bed asleep with breathing even and unlabored.
--- NOTE | 2019-04-04 07:30 | NUR ---
Received patient with pending transfer to [facility], as per report, insurance will not cover the transport service. Charge Nurse Jt is aware.
--- NOTE | 2019-04-04 08:32 | NUR ---
Paged the Floor Covering Installer icer air conditioning.
[2019-04-04 09:00] VITALS: BP 112/57
--- NOTE | 2019-04-04 09:52 | NUR ---
Paged the Combine Inspector again.
--- NOTE | 2019-04-04 09:59 | NUR ---
Motor Overhauler Brooklynn called back, made aware patient's insurance will not cover the transport service for transfer to [facility] as per report from the lube technician RN. Pereyra to call back.
[2019-04-04] MEDS: AMIODARONE HCL 200 MG TAB PO SCH (10:00)
--- NOTE | 2019-04-04 10:00 | NUR ---
Patient asked to be unhooked from the tubing to go downstairs to smoke. Patient made aware no beyond 30 minutes off unit. Signed AMA to smoke in the patient's chart.
--- NOTE | 2019-04-04 10:26 | NUR ---
Rn Imaging Brooklynn called back that [facility] to pickler helper the patient at 12:00 noon today for transfer to [facility].
--- NOTE | 2019-04-04 10:35 | NUR ---
[facility] said to keep the IV line or PICC Line if patient is going get IV antibiotics at [facility].
--- NOTE | 2019-04-04 10:35 | NUR ---
Called [facility] ([phone]). Report given to Jessica. Jessica said patient will be admitted to [address], Dr. Cooper is the admitting MD. Jessica said she's the only RN at this time at [facility], if patient can be transferred from [facility] to [facility] after 2:00 pm today. Paged Resistance Welder Brooklynn.
--- NOTE | 2019-04-04 10:43 | NUR ---
Called [facility]. Spoke with Nerissa. Nerissa made aware [facility] requested the patient be transferred there after 2:00 pm. [facility] to strip picker the patient at 2:00 pm today for transfer to [facility]. Charge Nurse Jt is aware.
--- NOTE | 2019-04-04 11:00 | NUR ---
Called Dr. Miller regarding PICC Line on the right upper arm. ordered to keep the patient's PICC Line for IV antibiotics at [facility].
--- NOTE | 2019-04-04 11:04 | NUR ---
Received page regarding pt needing transportation back to facility . Per Richelle pt was to be transported back to [facility] on last night but was told by [facility] that his transport was not authorized. Contacted oncall correctional case records supervisor, Renata, and she confirmed authorization for facility ( [id number]) and for transportation through [facility] (that was provided [id number]). Contacted [facility] and spoke Ray who did not know why transport was cancelled last night. Confirmed auth number and set up fern picker time of 12 noon back to facility today. Notified nurse iRchelle of the above.
[2019-04-04] MEDS: SODIUM CHLOR 0.9% PF (SALINE LOCK) 10ML VIAL/SYR IV SCH (11:05)
[2019-04-04] MEDS: MEROPENEM 1GM IVPB 100 ML IV SCH (11:05)
[2019-04-04] MEDS: FLUoxetine HCL 20 MG CAP PO SCH (11:06)
[2019-04-04] MEDS: ENOXAPARIN SOD 40 MG/0.4 ML SYRINGE SC SCH (11:07)
[2019-04-04 13:00] VITALS: BP_SYST 122; BP_SYST 142; BP_DIAS 62; BP_DIAS 77
[2019-04-04] MEDS ORDERED: VANCOMYCIN 1,250 MG in D5W 5% 250 ML IV SCH (13:00)
--- NOTE | 2019-04-04 13:00 | NUR ---
Patient to go downstairs to smoke. Signed AMA form in the patient's chart.
--- NOTE | 2019-04-04 13:15 | NUR ---
Patient back to room from smoking off unit. Patient has all her personal belongings. Patient's bag provided. Wound Vac on the right foot intact and patent.
--- NOTE | 2019-04-04 13:36 | NUR ---
Called ESTUARDO Lopez at [facility]. Informed Jessica that patient has a portable wound vac on the right foot, patient has PICC Line on the right upper arm inserted on 03/31/2019, Dr. Miller has orders for IV antibiotics for SNF transfer, will discharge the patient with PICC Line. PICC Line is intact and patent.
--- NOTE | 2019-04-04 14:03 | NUR ---
Discharge instructions given as ordered. Encourage to follow up with PMD as instructed. All questions and concerns addressed. Patient verbalized understanding. Medication reconciliation form completed and copy given to [facility] Transport Service to endorse to [facility]. PICC Line on the right upper arm (single lumen) intact and patent for IV antibiotics as ordered. Wound Vac on the right foot intact, patent and draining. Patient taken to vehicle via gurney with all personal belongings, accompanied by [facility] Transport Service. No distress noted at time of departure.
== END 2019-04-04 15:10 | DRG 503 ==
LOC: ER 15:41 → TELE 15:42 → TELE-WESTW 03-30 16:01 → WEST WING 04-04 06:11
PROVIDERS: ADMIT Nurse Practitioner Family; ATTEND Internal Medicine
PROC: 02HV33Z Insertion of Infusion Device into Superior Vena Cava, Percutaneous Approach (ICD-10-PCS; principal; 2019-03-31)
PROC: 0QBN0ZZ Excision of Right Metatarsal, Open Approach (ICD-10-PCS; 2019-04-01)
DX: T87.43 Infection of amputation stump, right lower extremity (principal); A48.0 Gas gangrene; L03.115 Cellulitis of right lower limb; L02.611 Cutaneous abscess of right foot; E11.52 Type 2 diabetes mellitus with diabetic peripheral angiopathy with gangrene; I31.3 Pericardial effusion (noninflammatory); T81.30XA Disruption of wound, unspecified, initial encounter; E87.6 Hypokalemia; N28.9 Disorder of kidney and ureter, unspecified; I50.9 Heart failure, unspecified; I11.0 Hypertensive heart disease with heart failure; E11.65 Type 2 diabetes mellitus with hyperglycemia; I48.91 Unspecified atrial fibrillation; E66.9 Obesity, unspecified; K44.9 Diaphragmatic hernia without obstruction or gangrene; K57.30 Diverticulosis of large intestine without perforation or abscess without bleeding; Z89.411 Acquired absence of right great toe; Z68.31 Body mass index [BMI] 31.0-31.9, adult; K80.20 Calculus of gallbladder without cholecystitis without obstruction; Z79.4 Long term (current) use of insulin; Z79.01 Long term (current) use of anticoagulants; Z79.899 Other long term (current) drug therapy; Z90.710 Acquired absence of both cervix and uterus; Z88.1 Allergy status to other antibiotic agents; Z88.8 Allergy status to other drugs, medicaments and biological substances; Y83.8 Other surgical procedures as the cause of abnormal reaction of the patient, or of later complication, without mention of misadventure at the time of the procedure
CPT/HCPCS: 36415; 36569; 71045; 73630; 73700; 80048; 80053; 80061; 80202; 81001; 82962; 83036; 83605; 83735; 85025; 85610; 85652; 85730; 86141; 87040; 87070; 87075; 87077; 87186; 87205; 96365; 96366; 96367; 96368; 96375; 96376; G0378; J0690; J1815; J2185; J2250; J2405; J2543; J2704; J7060

== ENCOUNTER 2019-06-17 09:21 | Day surgery (SDC) | payer OTHER, MEDICAID ==
[2019-06-16 14:32] LABS: Basophils # (auto) 0.1 uL; Eosinophils # (auto) 0.2 uL; Eosinophils % (auto) 3.3 % (0.0-7.0); Hematocrit 41.3 % (36.0-46.0); Hemoglobin 13.8 g/dL (12.2-16.2); Lymphocytes % (auto) 31.4 % (10.0-50.0); Mean Corpuscular Hemoglobin 31.1 pg (28.0-32.0); Mean Corpuscular Hgb Conc. 33.3 g/dL (32.0-36.0); Mean Corpuscular Volume 93.3 fL (80.0-100.0); Monocytes # (auto) 0.4 uL; Monocytes % (auto) 6.6 % (0.0-12.0); Neutrophils # (auto) 3.8 uL; Neutrophils % (auto) 57.7 % (37.0-80.0); Platelet Count (auto) 218 10^3/uL (140-450); Red Blood Cells 4.42 10^6/uL (4.0-5.20); Red Cell Distribution Width 16.4 % (11.8-14.3); White Blood Cell 6.5 10^3/uL (4.4-10.8)
[2019-06-16 14:37] LABS: Urine Bacteria FEW /hpf (None Seen); Urine Blood Negative /uL (Negative); Urine Hyaline Cast FEW /lpf (0 - 2); Urine Specific Gravity 1.015 (1.001-1.035); Urine WBC 23 /hpf (0 - 5)
[2019-06-16 14:45] LABS: INR 1.08 (0.9-1.15); Partial Thromboplastin Time 26.8 sec (23.64-32.05)
[2019-06-16 15:06] LABS: Albumin 3.8 g/dL (3.4-5.0); BUN/Creatinine Ratio 22.9; Calcium 10.3 mg/dL (8.5-10.1); Potassium 3.9 mmol/L (3.5-5.1)
[2019-06-16 15:09] LABS: Bilirubin, Total 0.4 mg/dL (0.2-1.0); Total Protein 8.2 g/dL (6.4-8.2)
[~2019-06-17] VITALS: Ht 167.6 cm; Wt 93.0 kg
[~2019-06-17 09:21] MED LIST changes: +DOCU50LI8 PO; -SITA100T7 PO; +TRAM50TA2 PO; +TRAZ-181 PO
[2019-06-17] MEDS ORDERED: PROPOFOL 10 MG/ML 20 ML IV ONE (09:22)
[2019-06-17] MEDS ORDERED: ONDANSETRON HCL 4 MG/2 ML VIAL ONE (12:32)
[2019-06-17] MEDS ORDERED: fentaNYL CITRATE 100 MCG/2 ML VL ONE (12:32)
[2019-06-17] MEDS ORDERED: SODIUM CHLORIDE LOCK 10 ML ONE (12:32)
[2019-06-17] MEDS ORDERED: MIDAZOLAM HCL 1MG/1ML-2 ML VIAL ONE (12:32)
[2019-06-17] MEDS ORDERED: HYDROmorphone HCL 2 MG/ML VL IV PRN (12:45)
[2019-06-17] MEDS ORDERED: MORPHINE SULFATE 4 MG/ML SYR/VIAL IV PRN (12:45)
[2019-06-17] MEDS ORDERED: fentaNYL CITRATE 100 MCG/2 ML VL IV PRN (12:45)
[2019-06-17] MEDS ORDERED: CLINDAMYCIN 600MG IV 50 ML IV ONE (12:49)
[2019-06-17 14:00] VITALS: BP 124/53
== END 2019-06-17 14:33 | disposition home or self-care (01) ==
LOC: SUR 09:21
PROVIDERS: ATTEND Podiatrist Foot & Ankle Surgery
DX: E11.621 Type 2 diabetes mellitus with foot ulcer (principal); L97.518 Non-pressure chronic ulcer of other part of right foot with other specified severity; E66.9 Obesity, unspecified; E11.22 Type 2 diabetes mellitus with diabetic chronic kidney disease; I13.0 Hypertensive heart and chronic kidney disease with heart failure and stage 1 through stage 4 chronic kidney disease, or unspecified chronic kidney disease; N18.3 Chronic kidney disease, stage 3 (moderate); I50.9 Heart failure, unspecified; E11.40 Type 2 diabetes mellitus with diabetic neuropathy, unspecified; E78.00 Pure hypercholesterolemia, unspecified; E03.9 Hypothyroidism, unspecified; J44.9 Chronic obstructive pulmonary disease, unspecified; F17.210 Nicotine dependence, cigarettes, uncomplicated; F32.9 Major depressive disorder, single episode, unspecified; Z68.33 Body mass index [BMI] 33.0-33.9, adult; Z88.5 Allergy status to narcotic agent; Z88.1 Allergy status to other antibiotic agents; Z79.4 Long term (current) use of insulin; Z79.899 Other long term (current) drug therapy
CPT/HCPCS: 15004; 15275; 36415; 80053; 81001; 82962; 85025; 85610; 85730; 87070; 87075; 87205; 88304; 88312; 88313; 93005; J2250; J2405; J2704; J3010; J3490; C1776

== ENCOUNTER 2019-07-01 06:50 | Day surgery (SDC) | payer OTHER, MEDICAID ==
[2019-06-29 15:23] LABS: Urine WBC None Seen /hpf (0 - 5)
[2019-06-29 15:31] LABS: Basophils # (auto) 0.1 uL; Basophils % (auto) 1.1 % (0.0-2.0); Eosinophils # (auto) 0.3 uL; Eosinophils % (auto) 4.4 % (0.0-7.0); Hematocrit 41.3 % (36.0-46.0); Hemoglobin 13.8 g/dL (12.2-16.2); Lymphocytes # (auto) 1.9 uL; Lymphocytes % (auto) 31.8 % (10.0-50.0); Mean Corpuscular Hemoglobin 30.9 pg (28.0-32.0); Mean Corpuscular Hgb Conc. 33.3 g/dL (32.0-36.0); Mean Corpuscular Volume 92.7 fL (80.0-100.0); Monocytes # (auto) 0.5 uL; Monocytes % (auto) 8.2 % (0.0-12.0); Neutrophils # (auto) 3.3 uL; Neutrophils % (auto) 54.5 % (37.0-80.0); Platelet Count (auto) 228 10^3/uL (140-450); Red Blood Cells 4.46 10^6/uL (4.0-5.20); Red Cell Distribution Width 16.1 % (11.8-14.3)
[2019-06-29 15:44] LABS: Urine Bacteria NONE SEEN /hpf (None Seen); Urine Blood Negative /uL (Negative); Urine Specific Gravity 1.012 (1.001-1.035)
[2019-06-29 15:52] LABS: Calcium 9.8 mg/dL (8.5-10.1); Potassium 3.8 mmol/L (3.5-5.1)
[2019-06-29 15:54] LABS: INR 1.11 (0.9-1.15); Partial Thromboplastin Time 27.4 sec (23.64-32.05)
[2019-06-29 15:58] LABS: Albumin 3.9 g/dL (3.4-5.0); BUN/Creatinine Ratio 17.2; Bilirubin, Total 0.4 mg/dL (0.2-1.0); Total Protein 8.4 g/dL (6.4-8.2)
[~2019-07-01] VITALS: Ht 167.6 cm; Wt 93.0 kg
[2019-07-01] MEDS ORDERED: CLINDAMYCIN 600MG IV 50 ML IV ONE (08:14)
[2019-07-01] MEDS ORDERED: fentaNYL CITRATE 100 MCG/2 ML VL ONE (08:39)
[2019-07-01] MEDS ORDERED: MIDAZOLAM HCL 1MG/1ML-2 ML VIAL ONE (08:39)
[2019-07-01] MEDS ORDERED: PROPOFOL 10 MG/ML 20 ML IV ONE (08:39)
[2019-07-01] MEDS ORDERED: ONDANSETRON HCL 4 MG/2 ML VIAL ONE (08:39)
[2019-07-01] MEDS ORDERED: SODIUM CHLORIDE LOCK 10 ML ONE (08:39)
[2019-07-01] MEDS ORDERED: ceFAZolin 1GM VL ONE (10:55)
[2019-07-01] MEDS ORDERED: ACCU-CHEK COMFORT CURVE STRIP VI ONE (11:00)
[2019-07-01] MEDS ORDERED: MORPHINE SULFATE 4 MG/ML SYR/VIAL IV PRN (11:00)
[2019-07-01] MEDS ORDERED: fentaNYL CITRATE 100 MCG/2 ML VL IV PRN (11:00)
[2019-07-01] MEDS ORDERED: METOCLOPRAMIDE HCL 5MG/ml INJ 2ml VIAL IV PRN (11:00)
[2019-07-01 12:06] VITALS: BP 125/70
== END 2019-07-01 12:11 | disposition home or self-care (01) ==
LOC: SUR 06:50
PROVIDERS: ATTEND Podiatrist Foot & Ankle Surgery
DX: E11.621 Type 2 diabetes mellitus with foot ulcer (principal); L89.893 Pressure ulcer of other site, stage 3; E78.00 Pure hypercholesterolemia, unspecified; I13.0 Hypertensive heart and chronic kidney disease with heart failure and stage 1 through stage 4 chronic kidney disease, or unspecified chronic kidney disease; E11.22 Type 2 diabetes mellitus with diabetic chronic kidney disease; N18.4 Chronic kidney disease, stage 4 (severe); I50.9 Heart failure, unspecified; E11.40 Type 2 diabetes mellitus with diabetic neuropathy, unspecified; E66.9 Obesity, unspecified; E78.5 Hyperlipidemia, unspecified; F32.9 Major depressive disorder, single episode, unspecified; F17.210 Nicotine dependence, cigarettes, uncomplicated; Z68.33 Body mass index [BMI] 33.0-33.9, adult; Z88.1 Allergy status to other antibiotic agents; Z88.5 Allergy status to narcotic agent; Z79.84 Long term (current) use of oral hypoglycemic drugs; Z79.4 Long term (current) use of insulin; Z79.899 Other long term (current) drug therapy
CPT/HCPCS: 15004; 15275; 36415; 80053; 81001; 82962; 85025; 85610; 85730; 87070; 87075; 87205; C1887; J0690; J2250; J2405; J2704; J3010; J3490; Q4161